=== PATIENT | female | born 2000 | race African-American/Black ===

== ENCOUNTER 2019-07-10 02:46 | Emergency (ER) | payer OTHER ==
[~2019-07-10] VITALS: Ht 160 cm; Wt 53.0 kg
[2019-07-10 05:45] LABS: BASOPHILS % 0.2 % (0.0-2.0); EOSINOPHILS % 0.2 % (0.0-5.0); HEMATOCRIT. 35.2 % (36.0-48.0); HEMOGLOBIN. 11.3 g/dL (12.0-16.0); LYMPHOCYTES % 11.2 % (20.0-50.0); MEAN CORPUSCULAR HEMOGLOBIN 22.1 pg (28.0-32.0); MEAN CORPUSCULAR VOLUME 68.7 fL (81.0-99.0); MEAN PLATELET VOLUME 10.7 fl (7.4-10.4); NEUTROPHILS % 81.4 % (40.0-76.0); PLATELET 144 x1000/uL (130-400); RED BLOOD CELL COUNT 5.12 mill/uL (4.2-5.4); RED CELL DISTRIBUTION WIDTH 15.2 % (11.6-14.6)
[2019-07-10 05:52] LABS: CHLORIDE 106 mEq/L (98-107)
[2019-07-10 06:25] VITALS: BP 115/60
[2019-07-10 08:01] LABS: PLATELET ESTIMATE NORMAL
== END 2019-07-10 07:13 | disposition left against medical advice (07) ==
LOC: ER 02:46
DX: R00.2 Palpitations (principal)
CPT/HCPCS: 36415; 71045; 81025; 84484; 93005; 99284